=== PATIENT | female | born 1950 | race Caucasian/White ===

== ENCOUNTER 2019-02-20 09:11 | Emergency (ER) | payer MEDICARE, BC ==
[~2019-02-20] VITALS: Ht 165.1 cm; Wt 59.1 kg
[2019-02-20 09:15] VITALS: Ht 165.1 cm; Wt 59.1 kg
[2019-02-20] MEDS ORDERED: AMITRIPTYLINE H50 MG PO (09:17)
[2019-02-20 09:47] LABS: BASOPHILS 0.6 % (0-2); EOSINOPHILS 5.7 % (0-7); HEMATOCRIT 40.4 % (36.0-48.0); HEMOGLOBIN 13.5 g/dL (12-16); IMMATURE GRANULOCYTES 0.2 % (0-5); LYMPHOCYTES 32.5 % (15-50); MCH 31.3 pg (26.0-34.0); MCHC 33.4 g/dL (31.0-37.0); MCV 93.5 fL (80.0-100.0); MEAN PLATELET VOLUME 10.1 fL (7.4-10.4); MONOCYTES 7.8 % (2-11); NEUTROPHILS 53.2 % (40-80); PLATELET COUNT 311 10x3/uL (130-400); RBC 4.32 10x6/uL (4.00-5.40); RDW 12.2 % (11.5-14.5); WBC 5.3 10x3/uL (4.8-10.8)
[2019-02-20 09:59] LABS: ALBUMIN 3.8 g/dL (3.4-5.0); ANION GAP 10.8 mmol/L (8-16); BILIRUBIN - TOTAL 0.51 mg/dL (0.2-1.3); CALCIUM 9.1 mg/dL (8.5-10.1); CARBON DIOXIDE 30.9 mmol/L (21.0-32.0); POTASSIUM - SERUM 3.7 mmol/L (3.5-5.1); PROTEIN - SERUM 7.7 g/dL (6.4-8.2)
[2019-02-20] MEDS ORDERED: CYCLOBENZAPRINE10 MG PO (10:53)
[2019-02-20 11:05] VITALS: BP 121/81
== END 2019-02-20 11:05 | disposition home or self-care (01) ==
LOC: D.ER 09:11
PROVIDERS: Family Medicine
DX: G44.209 Tension-type headache, unspecified, not intractable (principal); R55 Syncope and collapse

== ENCOUNTER 2019-04-03 16:31 | Inpatient (IN) | payer MEDICARE, BC ==
[~2019-04-03] VITALS: Ht 165.1 cm; Wt 58.6 kg
[~2019-04-03 16:31] MED LIST: AMITRIPTYLINE H50 MG PO; CYCLOBENZAPRINE10 MG PO
[2019-04-03] MEDS ORDERED: AMBIEN5 MG PO (17:03)
[2019-04-03 17:31] VITALS: BP 115/59; Ht 165.1 cm; Wt 58.6 kg
--- NOTE | 2019-04-03 17:46 | NUR ---
PATIENT IS A DIRECT ADMIT FROM DR LARA. REPORT FEVER LAST PM, SEVERE HEADACHE, ELEVATED WBC, AND CURRENT UTI WITH ECOLI. PATIENT IS ALERT ORIENTED, AMBULATORY. ORIENTED PATIENT TO ROOM. CL IN REACH
--- NOTE | 2019-04-03 19:15 | NUR ---
RECEIVED CARE FROM DAY NURSE. LYING IN BED WITH COMPANY AT SIDE. NO NEEDS VOICED AT THIS TIME. CALL LIGHT AT SIDE. IV SL TO PATENT LEFT FA.
[2019-04-03 20:00] VITALS: BP 88/45
[2019-04-03 21:03] LABS: APPEARANCE CLEAR (CLEAR); BILIRUBIN NEGATIVE (NEGATIVE); COLOR STRAW (YELLOW); GLUCOSE NEGATIVE (NEGATIVE); KETONE NEGATIVE (NEGATIVE); NITRITE NEGATIVE (NEGATIVE); PROTEIN NEGATIVE (NEGATIVE); SPECIFIC GRAVITY 1.005 (1.005-1.020); UROBILINOGEN NORMAL (NORMAL)
--- NOTE | 2019-04-03 23:01 | HP ---
PATIENT: PHYLLIS JUÁREZ MEDICAL RECORD: [id number] ACCOUNT: [id number] LOCATION:[facility] [id number] : 54 ADMISSION DATE: 04/03/19 PCP: LOIS LARA MD HISTORY AND PHYSICAL EXAMINATION REASON FOR ADMISSION: Fever, chills, night sweats, dysuria with abdominal pain. HISTORY OF PRESENT ILLNESS: The patient is a 68-year-old female, who had onset of a UTI, E. coli sensitive to all antibiotics in January of this year. She said she had a new love interest and had been more sexually active recently and she is postmenopausal. Three days prior to admission developed onset of dysuria and suprapubic abdominal pain. Her urine showed gross pyuria and bacteriuria. The culture today returned showing E. coli but sensitivities are pending. Over last 2 days, she has had chills, fever, night sweats, and generalized myalgias. She has had increasing suprapubic pain, but no flank or left lower quadrant pain. She came to the office this morning with these symptoms. She had a temperature of 99 degrees Fahrenheit and appeared moderately ill. Her white count is 19.9 thousand with left shift. Her liver functions were normal. The patient is now being directly admitted for cultures, IV antibiotics, and IV fluids. She denies cough, sore throat, vaginal discharge, history of kidney stones, or gross hematuria. She says she has had occasional tick bite, but no rash from that. PAST MEDICAL HISTORY: Diverticulosis by colonoscopy. 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 Otto, history of hiatal hernia, IBS, insomnia, osteoporosis, and actinic keratoses. PAST SURGICAL HISTORY: Squamous cell carcinoma removed from her skin and breast augmentation. FAMILY HISTORY: Mother is alive, has history of COPD, hypertension, hyperlipidemia. Father had CAD, COPD from smoking and lung cancer and from lung cancer. ALLERGIES: ERYTHROMYCIN, TRAZODONE, AND PENICILLIN. SOCIAL HISTORY: Retired educator. Does not smoke cigarettes currently or drink alcohol heavily. HOME MEDICATIONS: Amitriptyline 50 mg p.o. at bedtime p.r.n. sleep and Ambien 5 mg at bedtime p.r.n. sleep. REVIEW OF SYSTEMS: GENERAL: She has been fatigued for the last 2 days with insomnia, night sweats, and questionable fever. HEENT: No recent visual change, sinus congestion, sore throat, or hearing difficulty. She has had intermittent headache when she has had chills. No blurred vision. RESPIRATORY: No SOB or cough. CARDIAC: No exertional chest pain, claudication, edema, palpitations. GASTROINTESTINAL: She has had some nausea without vomiting. No change in stools or blood per rectum. ENDOCRINE: Denies polyuria, polydipsia, heat or cold intolerance. NEUROLOGIC: No history of stroke, TIA, or vascular headaches. She has had a HISTORY AND PHYSICAL [id number] PHYLLIS JUÁREZ dull headache intermittently. She has had chills, but no nuchal rigidity. INTEGUMENT: No rash or itching. PSYCHIATRIC: Denies depressed mood. GYNECOLOGICAL: No vaginal bleeding. She is postmenopausal. PHYSICAL EXAMINATION: VITAL SIGNS: Her temperature is 99 degrees Fahrenheit, heart rate is 90 and regular, respiratory rate 18, blood pressure was 100/60. GENERAL: Alert and oriented. HEENT: Eyes are clear. NECK: Supple, without bruits or masses. CHEST: Clear without wheeze. HEART: Regular rate and rhythm. PMI appropriate. BREASTS: Show implants bilaterally. ABDOMEN: Soft, minimally tender suprapubically without rebound. Bowel sounds are active. PELVIC: Deferred. EXTREMITIES: No CCE. INTEGUMENT: No rash or itching. Few AKs noted on her forearms. LABORATORY DATA: White count 19.9 thousand. Normal liver functions, BUN, creatinine, and potassium. Her UA shows pyuria and E. coli growing from the urine culture from 2 days ago. ASSESSMENT: Urinary tract infection with possible sepsis, night sweats, leukocytosis. PLAN: The patient will be admitted for IV fluids. Blood cultures will be obtained. Check lactic acid. IV Levaquin. Further workup pending clinical course. TRANSINT:[id number] Voice Confirmation ID: [id number] DOCUMENT ID: [id number] LOIS LARA MD at 2301 CC: [id number] DICTATION DATE: 04/03/19 1728 UPHOLSTERED GOODS CRAFTER: 04/03/19 1811 [place] [address]
[2019-04-04] VITALS: BP 97/57
[2019-04-04 04:00] VITALS: BP 91/53
[2019-04-04 05:59] LABS: BASOPHILS 0.1 % (0-2); EOSINOPHILS 4.9 % (0-7); HEMATOCRIT 31.8 % (36.0-48.0); HEMOGLOBIN 10.6 g/dL (12-16); IMMATURE GRANULOCYTES 0.1 % (0-5); LYMPHOCYTES 8.8 % (15-50); MCHC 33.3 g/dL (31.0-37.0); MEAN PLATELET VOLUME 10.1 fL (7.4-10.4); MONOCYTES 4.9 % (2-11); NEUTROPHILS 81.2 % (40-80); RBC 3.42 10x6/uL (4.00-5.40); RDW 12.5 % (11.5-14.5); WBC 9.2 10x3/uL (4.8-10.8)
[2019-04-04 06:02] LABS: PLATELET COUNT 248 10x3/uL (130-400)
[2019-04-04 06:13] LABS: CALC OSMOLALITY 282 mosm/kg (275-300); CALCIUM 8.1 mg/dL (8.5-10.1); CHLORIDE - SERUM 109 mmol/L (98-107); CREATININE - SERUM 0.8 mg/dL (0.6-1.3); GLUCOSE 110 mg/dL (74-106); POTASSIUM - SERUM 3.6 mmol/L (3.5-5.1); SODIUM 142 mmol/L (136-145); UREA NITROGEN 9 mg/dL (7-18); eGFR NON AFRICAN AMERICAN 76 mL/min (90-120)
--- NOTE | 2019-04-04 09:00 | NUR ---
ALERT AND ORIENTED AND DENIES ANY PAIN OR DISCOMFORT AT THIS TIME. UP ADLIB. LUNGS CTA. ABD. SOFT WITH BS NOTED. IVF INFUSING AT PREACRIBED RATE. TELEMELTRY INTACT WITH SCD'S. ENCOUAGED TO USE CALL LIGHT FOR ASSSIT.
[2019-04-04 09:12] VITALS: BP 96/55
[2019-04-04 12:53] VITALS: BP 117/65
[2019-04-04 17:45] VITALS: BP 105/58
--- NOTE | 2019-04-04 19:15 | NUR ---
RECEIVED CARE FROM DAY NURSE. LYING IN BED WITH AT SIDE. REPORTS NO NEEDS AT THIS TIME. CALL LIGHT AT SIDE. IV INFUSING PER ORDER TO LEFT FA.
[2019-04-04 20:00] VITALS: BP 109/58
[2019-04-05] VITALS: BP 105/58
[2019-04-05 04:00] VITALS: BP 112/70
[2019-04-05 06:37] LABS: ALBUMIN 2.4 g/dL (3.4-5.0); ALKALINE PHOSPHATASE 61 U/L (46-116); ALT (SGPT) 18 U/L (10-68); BILIRUBIN - TOTAL 0.24 mg/dL (0.2-1.3); CALC OSMOLALITY 282 mosm/kg (275-300); CALCIUM 8.2 mg/dL (8.5-10.1); CARBON DIOXIDE 24.3 mmol/L (21.0-32.0); CHLORIDE - SERUM 111 mmol/L (98-107); CREATININE - SERUM 0.7 mg/dL (0.6-1.3); GLUCOSE 92 mg/dL (74-106); POTASSIUM - SERUM 3.7 mmol/L (3.5-5.1); PROTEIN - SERUM 5.6 g/dL (6.4-8.2); SODIUM 143 mmol/L (136-145); UREA NITROGEN 7 mg/dL (7-18); eGFR NON AFRICAN AMERICAN 89 mL/min (90-120)
--- NOTE | 2019-04-05 08:08 | NUR ---
ALERT AND ORIENTED X3. ABDOMEN SOFT WITH BS NOTEDX4 LUNGS CTA. TELEMETRY INTACT. UP AD ASTER. IVF INFUSING AT PRESCRIBED RATE LT. FOREARM W.O ANY S/S OF INFECTION/INFOLTRATION. DENIES ANY PAIN OR DISCOMFORT AT THIS TIME AND ENCOURAGED TO USE CALL LIGHT FOR ASSSIT.
[2019-04-05] MEDS ORDERED: LEVOFLOXACIN500 MG PO (08:47)
[2019-04-05 09:14] VITALS: BP 112/63
[2019-04-05 13:04] VITALS: BP 112/64
--- NOTE | 2019-04-05 14:41 | NUR ---
IV DISCONTINUED AND VERBALIZED UNDERSTANDING OF DISCHARGE INSTRUCTIONS. STABLE AT TIME OF DEPARTURE AND LEFT POV WITH .
== END 2019-04-05 14:41 | disposition home or self-care (01) | DRG 872 ==
LOC: D.MS 16:31
PROVIDERS: ADMIT Family Medicine; ATTEND Family Medicine
DX: A41.9 Sepsis, unspecified organism (principal); N39.0 Urinary tract infection, site not specified; K21.9 Gastro-esophageal reflux disease without esophagitis; K58.9 Irritable bowel syndrome, unspecified; M81.0 Age-related osteoporosis without current pathological fracture

== ENCOUNTER 2019-04-28 13:19 | Inpatient (IN) | payer MEDICARE, BC ==
[~2019-04-28] VITALS: Ht 165.1 cm; Wt 59.1 kg
[~2019-04-28 13:19] MED LIST changes: +AMBIEN5 MG PO; +LEVOFLOXACIN500 MG PO
[2019-04-28] MEDS ORDERED: MACROBID100 MG PO (14:15)
[2019-04-28 14:23] VITALS: BP 115/59; Ht 165.1 cm; Wt 59.1 kg
[2019-04-28 15:05] VITALS: BP 115/59
--- NOTE | 2019-04-28 16:00 | NUR ---
PT ARRIVED DIRECT ADMIT FROM DR LARA'S OFFICE. X8 IV STICKS FROM FOUR DIFFRENT NURSES. DONALD CONSULTED 22G IV TO RIGHT WRIST. PT ALERT AND ORIENTED X4. VITALS STABLE. NO S/S OF DISTRESS. BED LOW CALL LIGHT WITHIN REACH. WILL CONTINUE TO MONITOR.
[2019-04-28 16:03] LABS: ALBUMIN 3.4 g/dL (3.4-5.0); BILIRUBIN - DIRECT 0.18 mg/dL (0.00-0.30); BILIRUBIN - INDIRECT 0.53 mg/dL (0.00-1.00); BILIRUBIN - TOTAL 0.71 mg/dL (0.2-1.3); PROTEIN - SERUM 6.6 g/dL (6.4-8.2)
--- NOTE | 2019-04-28 19:30 | NUR ---
EVENING ROUNDS MADE. PT LAYING IN BED RESTING. AT BEDSIDE. PT STATES SHE THINKS HER FEVER IS COMING BACK. WILL HAVE MONITORING ANALYST CHECK TEMP. DENIES PAIN. NO FURTHER CONCERNS AT THIS TIME. VANC INFUSING TO IV IN R WRIST. BED LOWERED AND LOCKED. CL IN REACH. WILL CTM.
--- NOTE | 2019-04-28 20:00 | NUR ---
PT TEMP 101.7, TYLENOL 500 MG GIVEN. WILL REASSESS TEMP IN 30 MIN.
[2019-04-28 22:12] LABS: APPEARANCE CLEAR (CLEAR); BILIRUBIN NEGATIVE (NEGATIVE); COLOR YELLOW (YELLOW); GLUCOSE NEGATIVE (NEGATIVE); KETONE NEGATIVE (NEGATIVE); NITRITE NEGATIVE (NEGATIVE); PROTEIN NEGATIVE (NEGATIVE); UROBILINOGEN NORMAL (NORMAL)
[2019-04-28 22:14] VITALS: BP 106/57
--- NOTE | 2019-04-28 22:29 | NUR ---
[place] HAT GIVEN TO PT FOR UA COLLECTION. UA COLLECTED AND SENT TO LAB. PT RESTING COMFORTABLE IN BED.
--- NOTE | 2019-04-28 22:30 | NUR ---
TEMP AFTER TYLENOL X 1 DOSE NOW 98.8. BED LOWERED AND LOCKED. CL IN REACH. WILL CTM.
--- NOTE | 2019-04-28 22:33 | NUR ---
PT UNABLE TO SLEEP, AMBIEN GIVEN FOR INSOMNIA. NO FURTHER CONCERNS AT THIS TIME. WILL CTM.
[2019-04-29 01:01] VITALS: BP 93/52
[2019-04-29 05:16] VITALS: BP 87/48
--- NOTE | 2019-04-29 06:02 | NUR ---
PT LAYING IN BED RESTING. DENIES PAIN AT THIS TIME. VITALS STABLE. WILL CTM.
[2019-04-29 06:15] LABS: BASOPHILS 0.1 % (0-2); EOSINOPHILS 6.4 % (0-7); HEMATOCRIT 31.9 % (36.0-48.0); HEMOGLOBIN 10.6 g/dL (12-16); IMMATURE GRANULOCYTES 0.2 % (0-5); LYMPHOCYTES 8.6 % (15-50); MCH 30.6 pg (26.0-34.0); MCHC 33.2 g/dL (31.0-37.0); MCV 92.2 fL (80.0-100.0); MONOCYTES 3.2 % (2-11); NEUTROPHILS 81.5 % (40-80); PLATELET COUNT 234 10x3/uL (130-400); RBC 3.46 10x6/uL (4.00-5.40); RDW 12.6 % (11.5-14.5); WBC 12.9 10x3/uL (4.8-10.8)
[2019-04-29 06:38] LABS: CALC OSMOLALITY 281 mosm/kg (275-300); CARBON DIOXIDE 25.6 mmol/L (21.0-32.0); CHLORIDE - SERUM 109 mmol/L (98-107); CREATININE - SERUM 0.7 mg/dL (0.6-1.3); GLUCOSE 88 mg/dL (74-106); POTASSIUM - SERUM 3.2 mmol/L (3.5-5.1); SODIUM 143 mmol/L (136-145); UREA NITROGEN 6 mg/dL (7-18); eGFR NON AFRICAN AMERICAN 89 mL/min (90-120)
--- NOTE | 2019-04-29 06:51 | HP ---
PATIENT: PHYLLIS JUÁREZ MEDICAL RECORD: [id number] ACCOUNT: [id number] LOCATION:[address] : [birth year] ADMISSION DATE: 04/28/19 PCP: LOIS LARA MD HISTORY AND PHYSICAL EXAMINATION REASON FOR ADMISSION: Fever, chills, and high white count. HISTORY OF PRESENT ILLNESS: The patient is a 68-year-old female who was treated in January of this year for sensitive E. coli UTI as outpatient. She was admitted on April 03 with symptoms of fever, chills, dysuria, and hypotension. Lactic acid was 3. She was placed on Levaquin and vancomycin based on an outpatient urine culture. She improved in 48 hours and was discharged to home and follow up urine was clear. Ultrasound did show some mild bilateral hydronephrosis, but urology was not available during that admission. It was elected to have an outpatient CT of her kidneys to rule out any obstructive causes. She had felt well until 3 days prior to admission. She developed some chills. The next day, she developed fever and chills with temperature as high as 101. She developed also some lumbago and slight headache related to the fever. She denied any abdominal pain or dysuria. For this reason, she came to the office today and her white count was 24,000. Urine showed minimal bacteriuria. At this time, the cause of her leukocytosis and fever is unknown. She has had a dry cough, nonproductive. Denies abdominal pain. For the last month, she has had trouble with ambulation. Numbness develops in her feet and rises up to levels of her knees. As she gets off her feet, it seems to go away. She does not describe true claudication. She has not had weakness in her legs and is scheduled for outpatient EMG nerve conductions. PAST MEDICAL HISTORY: As above with E. coli UTI; diverticulosis; history of squamous cell carcinoma of skin, removed; GERD; esophageal stricture, post dilatation; hiatal hernia; IBS; insomnia; osteoporosis; and actinic keratosis. PAST SURGICAL HISTORY: Squamous cell carcinoma removed from her skin and breast augmentation. FAMILY HISTORY: Mother is alive with COPD, hypertension, and hyperlipidemia. Father from COPD, CAD, and lung cancer. ALLERGIES: TRAZODONE, ERYTHROMYCIN, AND PENICILLIN. 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 She does have an occasional drink. She has been and now has a new love interest. She has returned from a trip to [place] after last hospitalization. HOME MEDICATIONS: Ambien 5 mg at bedtime for sleep and calcium carbonate with vitamin D 500 mg b.i.d. REVIEW OF SYSTEMS: GENERAL: Fatigue for the last 2 days with night sweats and fever as well, as mentioned. SKIN: She has had few skin lesions that are benign appearing. No recent icterus. No pruritus. No rash. HEENT: No recent visual change, sinus congestion, sore throat, or hearing difficulty. She had a slight occipital headache that resolved with Tylenol. RESPIRATORY: She has had mild cough without shortness of breath or sputum HISTORY AND PHYSICAL [id number] PHYLLIS JUÁREZ. CARDIAC: No exertional rest chest pain, claudication, edema, or palpitations. GASTROINTESTINAL: No nausea, vomiting, change in stools, or blood per rectum. ENDOCRINE: Denies polyuria, polydipsia, heat or cold intolerance. NEUROLOGIC: No history of stroke, TIA, vascular headaches, or seizures. MUSCULOSKELETAL: She has had numbness in her lower extremities below the knee with standing and ambulation. Denies back pain with it. She has not noticed any trouble with weakness in her legs. GYNECOLOGIC: Denies vaginal bleeding. She is postmenopausal. PHYSICAL EXAMINATION: VITAL SIGNS: Her temperature is 98.4, was 99 in the office; pulse 93; respirations 20; blood pressure 115/59; and O2 sat of 90% on room air. GENERAL: The patient appears mildly ill. She is alert and oriented. HEENT: Her eyes are clear. Oropharynx is unremarkable. NECK: Supple without bruits or masses. CHEST: Clear without wheezes or rales. HEART: Regular rate without MGR. PMI is appropriate. BREASTS: Show implants bilaterally. ABDOMEN: Soft, scaphoid. Liver, kidney, spleen nonpalpable. Nontender. No rebound. RECTAL: Deferred. EXTREMITIES: No CC&E. NEUROLOGICAL: She is oriented to person, place, and time. Cranial nerves are intact. Gait is normal. Reflexes 2+ symmetrically. She has good strength of her lower extremities. She plantarflexed and dorsiflexed feet without difficulty. At rest, she has normal sensation to palpation. Pulses intact throughout. LABORATORY DATA: Liver functions are normal. White count was 24,000 with 90% polys, H&H of 12.5 and 37.8, and platelet count 294,000. Urinalysis shows 1+ ketones, specific gravity 1.01, 0-1 white cells, 0 red cells, and few bacteria. Additionally, she was seen in walk-in clinic over the weekend. The urine, she was told, showed mild infection and was placed on Macrodantin. DIAGNOSTIC DATA: Chest x-ray is clear. ASSESSMENT: 1. Fever and chills with leukocytosis, etiology unknown. 2. Recent E. coli UTI, recurrent. 2. Headache. 3. Intermittent neuropathy of lower extremities, etiology unknown. PLAN: The patient will be admitted for culturing and IV broad-spectrum antibiotics. Further workup pending clinical course. TRANSINT:[id number] Voice Confirmation ID: [id number] DOCUMENT ID: [id number] HISTORY AND PHYSICAL [id number] PHYLLIS JUÁREZ TIMOTHY MD at 0651 CC: [id number] DICTATION DATE: 04/28/191728 WRAPPER HAND: 04/28/19 1857 ADM IN [facility] [address] [place] [address]
[2019-04-29 08:41] VITALS: BP 118/64
[2019-04-29 12:04] VITALS: BP 122/61
[2019-04-29 15:46] VITALS: BP 124/58
--- NOTE | 2019-04-29 19:30 | NUR ---
EVENING ROUNDS MADE. FAMILY AT BEDSIDE. PT CONCERNED ABOUT IV SITE, SLIGHTLY RED/SWOLLEN. CHECKED IV, POSITIVE BLOOD RETURN. INFORMED PT THAT IT IS MOST LIKELY SORE DUE TO BEING RIGHT ABOVE PREVIOUS INFILTRATED IV SITE. PT AGREED. NO FURTHER CONCERNS AT THIS TIME. PT STATES SHE WOULD LIKE [facility] BUT LATER THAN LAST NIGHT. NO FURTHER CONCERNS. BED LOWERED AND LOCKED. CL IN REACH. WILL CTM.
[2019-04-29 20:00] VITALS: BP 119/72
--- NOTE | 2019-04-29 22:25 | NUR ---
ANTBX INFUSING TO IV IN R FA, PATENT, DRSG C/D/I. PT SITTING UP IN CHAIR AT BEDSIDE. NO FURTHER CONCERNS AT THIS TIME. BED LOWERED AND LOCKED. CL IN REACH. WILL CTM
[2019-04-30] VITALS: BP 93/51
[2019-04-30 04:00] VITALS: BP 98/58
[2019-04-30 06:15] LABS: BASOPHILS 0.1 % (0-2); EOSINOPHILS 13.2 % (0-7); HEMATOCRIT 32.6 % (36.0-48.0); HEMOGLOBIN 10.8 g/dL (12-16); IMMATURE GRANULOCYTES 0.3 % (0-5); LYMPHOCYTES 21.4 % (15-50); MCH 30.6 pg (26.0-34.0); MCHC 33.1 g/dL (31.0-37.0); MCV 92.4 fL (80.0-100.0); MEAN PLATELET VOLUME 10.9 fL (7.4-10.4); MONOCYTES 6.7 % (2-11); NEUTROPHILS 58.3 % (40-80); PLATELET COUNT 260 10x3/uL (130-400); RBC 3.53 10x6/uL (4.00-5.40); RDW 12.5 % (11.5-14.5)
[2019-04-30 06:16] LABS: CALC OSMOLALITY 283 mosm/kg (275-300); CALCIUM 8.4 mg/dL (8.5-10.1); CARBON DIOXIDE 25.5 mmol/L (21.0-32.0); CHLORIDE - SERUM 109 mmol/L (98-107); CREATININE - SERUM 0.8 mg/dL (0.6-1.3); GLUCOSE 89 mg/dL (74-106); POTASSIUM - SERUM 3.5 mmol/L (3.5-5.1); SODIUM 144 mmol/L (136-145); eGFR NON AFRICAN AMERICAN 76 mL/min (90-120)
[2019-04-30 06:32] LABS: UREA NITROGEN 8 mg/dL (7-18)
[2019-04-30 06:36] LABS: WBC 6.9 10x3/uL (4.8-10.8)
[2019-04-30 08:49] VITALS: BP 120/62
[2019-04-30 12:25] VITALS: BP 113/61
--- NOTE | 2019-04-30 15:20 | MORECARE ---
CASE MANAGEMENT DISCHARGE SUMMARY PATIENT: PHYLLIS JUÁREZ UNIT: [id number] ADM DATE: 04/28/19 AGE: 68 : 52 SEX: F ROOM/BED: D.2131 AUTHOR: LAUREN PETER PHYSICIAN: REFERRING PHYSICIAN: LOIS LARA MD DATE OF SERVICE: 04/30/19 Discharge Plan Patient Name: PHYLLIS JUÁREZ [facility] [facility] 1950 Planned Disposition: Home Anticipated Discharge Date: Discharge Date: Expected LOS: Initial Reviewer: [email or web address] Initial Review Date: 04/28/2019 Generated: 04/30/19 4:20 pm Patient Name: PHYLLIS JUÁREZ Page [id number] at 1520 All edits/amendments must be made on the electronic document DICTATION DATE: 04/30/19 152 BUSINESS DEVELOPER: AZALEA 04/30/19 1520 RPT#: [id number] DC DATE: STATUS: ADM IN [facility] [address] [place] [address] END OF REPORT
--- NOTE | 2019-04-30 15:30 | MORECARE ---
CASE MANAGEMENT DISCHARGE SUMMARY PATIENT: PHYLLIS JUÁREZ UNIT: [id number] ADM DATE: 04/28/19 AGE: 68 : 54 SEX: F ROOM/BED: D.2131 AUTHOR: LAUREN PETER PHYSICIAN: REFERRING PHYSICIAN: LOIS DIAZ MD DATE OF SERVICE: 04/30/19 Discharge Plan Patient Name: PHYLLIS JUÁREZ [facility] : 1950 Planned Disposition: Home Anticipated Discharge Date: 04/30/19 Discharge Date: Expected LOS: 2 Initial Reviewer: [email or web address] Initial Review Date: 04/28/2019 Generated: 04/30/19 4:30 pm DCPIA - Discharge Planning Initial Assessment Updated by [email or web address]: Faith Marquez on 04/30/19 3:26 pm * Is the patient Alert and Oriented? Yes * How many steps to enter\exit or inside your home? 2 steps * PCP DR Diaz * Pharmacy [facility] * Preadmission Environment Home with Family * ADLs Independent * Equipment None * Other Equipment Patient denies any DME * List name and contact numbers for known caregivers / representatives who currently or will assist patient after discharge: Saúl miranda?-- [phone] * Verbal permission to speak to the caregivers and representatives has been obtained from the patient. Yes * Community resources currently utilized None * Please name any agencies selected above. N/A * Additional services required to return to the preadmission environment? No * Can the patient safely return to the preadmission environment? Yes * Has this patient been hospitalized within the prior 30 days at any hospital? No Last DP export: 04/30/19 2:21 p Patient Name: PHYLLIS JUÁREZ Page [phone] at 1530 All edits/amendments must be made on the electronic document DICTATION DATE: 04/30/19 153 CEMETERY MANAGER: AZALEA 04/30/19 1530 RPT#: [id number] DC DATE: STATUS: ADM IN [facility] [address] [place] [address] END OF REPORT
--- NOTE | 2019-04-30 15:46 | MORECARE ---
CASE MANAGEMENT DISCHARGE SUMMARY PATIENT: PHYLLIS JUÁREZ UNIT: [id number] ADM DATE: 04/28/19 AGE: 68 : 52 SEX: F ROOM/BED: D.2360 AUTHOR: LAUREN PETER PHYSICIAN: REFERRING PHYSICIAN: LOIS DIAZ MD DATE OF SERVICE: 04/30/19 Discharge Plan Patient Name: PHYLLIS JUÁREZ Facility: [facility]:[place] : 1950 Planned Disposition: Home Anticipated Discharge Date: 04/30/19 Discharge Date: Expected LOS: 2 Initial Reviewer: [email or web address] Initial Review Date: 04/28/2019 Generated: 04/30/19 4:45 pm Comments DCP- Discharge Planning Updated by [email or web address]: Faith Marquez on 04/30/19 2:[address] CM met with the patient , her fianc?", Saúl Lin and her mother, Chio in her room. The patient gave permission for the CM to speak with her regarding her discharge with them in the room. She plans to return to home. She states she maybe discharged today. She has no home health or community services and does not feel she needs any services at discharge. CM explained how to obtain assistance or h/h after discharge. She is independent in her care. Does not have or require any DME. She has transportation to home. States she is feeling better. Hopes to go home today. Denies any needs. Cm discussed Discharge IMM. Patient is familiar w/ the IMM. She had no questions or concerns. 1510 CM served Discharge IMM. The patient reviewed the copy. Signature obtained for the patient copy. Signature obtain for the hard cover chart copy. DCPIA - Discharge Planning Initial Assessment Updated by [email or web address]: Faith Marquez on 04/30/19 3:26 pm * Is the patient Alert and Oriented? Yes * How many steps to enter\\exit or inside your home? 2 steps * PCP DR Diaz * Pharmacy [facility] [address] * Preadmission Environment Home with Family * ADLs Independent * Equipment None * Other Equipment Patient denies any DME * List name and contact numbers for known caregivers / representatives who currently or will assist patient after discharge: Saúl Lin- ruben?-- [phone] * Verbal permission to speak to the caregivers and representatives has been obtained from the patient. Yes * Community resources currently utilized None * Please name any agencies selected above. N/A * Additional services required to return to the preadmission environment? No * Can the patient safely return to the preadmission environment? Yes * Has this patient been hospitalized within the prior 30 days at any hospital? No Coverage Notice Reviewer: [email or web address] Garrick Marquez Notice Issued Date-Time: 04/30/2019 15:10 Notice Type: IM Discharge Notice Notice Delivered To: Patient Relationship to Patient: Self Refinery Operator Alkylation Name: Delivery Method: HAND - Hand Delivered Sandy Days: Prior Verbal Notification: Recipient Understood Notice: Yes Recipient Signature: Yes Med Rec Note Co-signed by Attending: Coverage Notice Comment: Discharge IMM discussed w/ the patient, her fianc?. Signature obtained on both copies. Signed copy to the patient. Signed copy to the hard cover chart. Last DP export: 04/30/19 2:30 p Patient Name: PHYLLIS JUÁREZ Page [phone] at 1546 All edits/amendments must be made on the electronic document DICTATION DATE: 04/30/19 1545 GLOBAL SAFETY OFFICER: AZALEA 04/30/19 1545 RPT#: [id number] DC DATE: STATUS: ADM IN [facility] [address] [place] [address] END OF REPORT
--- NOTE | 2019-04-30 16:00 | MORECARE ---
CASE MANAGEMENT DISCHARGE SUMMARY PATIENT: PHYLLIS JUÁREZ UNIT: [id number] ADM DATE: 04/28/19 AGE: 68 : 52 SEX: F ROOM/BED: D.0722 AUTHOR: LAUREN PETER PHYSICIAN: REFERRING PHYSICIAN: LOIS DIAZ MD DATE OF SERVICE: 04/30/19 Discharge Plan Patient Name: PHYLLIS JUÁREZ Facility: [facility]:[place] : 1950 Planned Disposition: Home Anticipated Discharge Date: 04/30/19 Discharge Date: Expected LOS: 2 Initial Reviewer: [email or web address] Initial Review Date: 04/28/2019 Generated: 04/30/19 5:00 pm Comments DCP- Discharge Planning Updated by [email or web address]: Faith Marquez on 04/30/19 2:[address] CM met with the patient , her fianc?", Saúl Lin and her mother, Chio in her room. The patient gave permission for the CM to speak with her regarding her discharge with them in the room. She plans to return to home. She states she maybe discharged today. She has no home health or community services and does not feel she needs any services at discharge. CM explained how to obtain assistance or h/h after discharge. She is independent in her care. Does not have or require any DME. She has transportation to home. States she is feeling better. Hopes to go home today. Denies any needs. Cm discussed Discharge IMM. Patient is familiar w/ the IMM. She had no questions or concerns. 1510 CM served Discharge IMM. The patient reviewed the copy. Signature obtained for the patient copy. Signature obtain for the hard cover chart copy. DCPIA - Discharge Planning Initial Assessment Updated by [email or web address]: Faith Marquez on 04/30/19 3:26 pm * Is the patient Alert and Oriented? Yes * How many steps to enter\\exit or inside your home? 2 steps * PCP DR Diaz * Pharmacy [facility] [address] * Preadmission Environment Home with Family * ADLs Independent * Equipment None * Other Equipment Patient denies any DME * List name and contact numbers for known caregivers / representatives who currently or will assist patient after discharge: Saúl Lin- ruben?-- [phone] * Verbal permission to speak to the caregivers and representatives has been obtained from the patient. Yes * Community resources currently utilized None * Please name any agencies selected above. N/A * Additional services required to return to the preadmission environment? No * Can the patient safely return to the preadmission environment? Yes * Has this patient been hospitalized within the prior 30 days at any hospital? No Coverage Notice Reviewer: [email or web address] Garrick MontesFaithjose Marquez Notice Issued Date-Time: 04/30/2019 15:10 Notice Type: IM Discharge Notice Notice Delivered To: Patient Relationship to Patient: Self School Fundraising Director Name: Delivery Method: HAND - Hand Delivered Sandy Days: Prior Verbal Notification: Recipient Understood Notice: Yes Recipient Signature: Yes Med Rec Note Co-signed by Attending: Coverage Notice Comment: Discharge IMM discussed w/ the patient, her fianc?. Signature obtained on both copies. Signed copy to the patient. Signed copy to the hard cover chart. Last DP export: 04/30/19 2:46 p Patient Name: PHYLLIS JUÁREZ Page [id number] at 1600 All edits/amendments must be made on the electronic document DICTATION DATE: 04/30/19 1600 ENGINE SERVICE REPAIRER: AZALEA 04/30/19 1600 RPT#: [id number] DC DATE: STATUS: ADM IN [facility] [address] [place] [address] END OF REPORT
[2019-04-30 16:39] VITALS: BP 118/63
[2019-04-30] MEDS ORDERED: LEVOFLOXACIN500 MG PO (16:53)
--- NOTE | 2019-05-04 09:29 | MORECARE ---
CASE MANAGEMENT DISCHARGE SUMMARY PATIENT: PHYLLIS JUÁREZ UNIT: [id number] ADM DATE: 04/28/19 AGE: 68 : 54 SEX: F ROOM/BED: D.8128 AUTHOR: LAUREN PETER PHYSICIAN: REFERRING PHYSICIAN: LOIS DIAZ MD DATE OF SERVICE: 05/04/19 Discharge Plan Patient Name: PHYLLIS JUÁREZ Facility: [facility]:[place] : 1950 Planned Disposition: Home Anticipated Discharge Date: 04/30/19 Discharge Date: 04/30/2019 Expected LOS: 2 Initial Reviewer: [email or web address] Initial Review Date: 04/28/2019 Generated: 05/04/19 10:28 am Comments DCP- Discharge Planning Updated by [email or web address]: Faith Marquez on 04/30/19 2:[address] CM met with the patient , her fianc?", Saúl Chelseasyl and her mother, Chio in her room. The patient gave permission for the CM to speak with her regarding her discharge with them in the room. She plans to return to home. She states she maybe discharged today. She has no home health or community services and does not feel she needs any services at discharge. CM explained how to obtain assistance or h/h after discharge. She is independent in her care. Does not have or require any DME. She has transportation to home. States she is feeling better. Hopes to go home today. Denies any needs. Cm discussed Discharge IMM. Patient is familiar w/ the IMM. She had no questions or concerns. 1510 CM served Discharge IMM. The patient reviewed the copy. Signature obtained for the patient copy. Signature obtain for the hard cover chart copy. DCPIA - Discharge Planning Initial Assessment Updated by [email or web address]: Faith Marquez on 04/30/19 3:26 pm * Is the patient Alert and Oriented? Yes * How many steps to enter\\exit or inside your home? 2 steps * PCP DR Diaz * Pharmacy [facility] [address] * Preadmission Environment Home with Family * ADLs Independent * Equipment None * Other Equipment Patient denies any DME * List name and contact numbers for known caregivers / representatives who currently or will assist patient after discharge: Saúl Lin- ruben?-- [phone] * Verbal permission to speak to the caregivers and representatives has been obtained from the patient. Yes * Community resources currently utilized None * Please name any agencies selected above. N/A * Additional services required to return to the preadmission environment? No * Can the patient safely return to the preadmission environment? Yes * Has this patient been hospitalized within the prior 30 days at any hospital? No Coverage Notice Reviewer: [id number] Garrick Marquez Notice Issued Date-Time: 04/30/2019 15:10 Notice Type: IM Discharge Notice Notice Delivered To: Patient Relationship to Patient: Self [employer] Drier Name: Delivery Method: HAND - Hand Delivered Sandy Days: Prior Verbal Notification: Recipient Understood Notice: Yes Recipient Signature: Yes Med Rec Note Co-signed by Attending: Coverage Notice Comment: Discharge IMM discussed w/ the patient, her fianc?. Signature obtained on both copies. Signed copy to the patient. Signed copy to the hard cover chart. Last DP export: 04/30/19 3:00 p Patient Name: PHYLLIS JUÁREZ Page [id number] at 0929 All edits/amendments must be made on the electronic document DICTATION DATE: 05/04/19927 [employer] MANAGER: AZALEA 05/04/19927 RPT#: [id number] DC DATE:04/30/19 STATUS: DIS IN [facility] [address] [place] [address] END OF REPORT
== END 2019-04-30 18:12 | disposition home or self-care (01) | DRG 872 ==
LOC: D.M2 13:19
PROVIDERS: ADMIT Family Medicine; ATTEND Family Medicine
DX: A41.9 Sepsis, unspecified organism (principal); N39.0 Urinary tract infection, site not specified; M48.062 Spinal stenosis, lumbar region with neurogenic claudication; G44.209 Tension-type headache, unspecified, not intractable; K21.9 Gastro-esophageal reflux disease without esophagitis; G47.00 Insomnia, unspecified; M81.0 Age-related osteoporosis without current pathological fracture; G62.9 Polyneuropathy, unspecified; B96.20 Unspecified Escherichia coli [E. coli] as the cause of diseases classified elsewhere

== ENCOUNTER → 2021-03-03 09:01 | Outpatient (CLI) | payer MEDICARE, BC ==
[2019-04-28 14:23] VITALS: BMI 21.6
[~2021-03-03 09:01] MED LIST changes: +MACROBID100 MG PO
== END | disposition home or self-care (01) ==
LOC: D.MRI 09:00
PROVIDERS: ATTEND Family Medicine
DX: M54.41 Lumbago with sciatica, right side (principal); M48.061 Spinal stenosis, lumbar region without neurogenic claudication